=== PATIENT | male | born 1960 | race Caucasian/White ===

== ENCOUNTER → 2018-08-08 | Outpatient (CLI) | payer OTHER ==
[~2018-08-08] MED LIST: ALLO300T PO; AMLO10TA8 PO; ASPI81TA50 PO; GABA300C18 PO; HYDR-2145 PO; IOHEXOL 180 MG/ML 10 ML VIAL. ONE; LISI-130 PO; METO50TA6 PO; MULT-697 PO; POTA20TA82 PO; PRAV20TA2 PO; TIZA4TAB PO; methylPREDNISolone ACETATE 40 MG/ML VIAL. ONE; methylPREDNISolone ACETATE 80 MG/ML VIAL. ONE
--- NOTE | 2018-08-08 19:35 | PAIN ---
DATE OF SERVICE: 08/08/2018 DIAGNOSIS: Lumbar radiculopathy with lumbar degenerative disk disease. HISTORY OF PRESENT ILLNESS: The patient is a 58-year-old male who returns for a followup status post lumbar epidural steroid injection x 1. The patient reports about 75% improvement until he cut some grass about a week ago. The patient reports he was doing his neighbor's lawn and his lawn with a push mower, and although , it was still significantly difficult with his back with bending in a certain position. The patient reports some pain in the back, later on the left but transferred over to the right with standing, walking, sitting. It has not been awakening him from sleep at night. It is much better with lying down. The patient reports it is a 9 on a scale of 10 on average, 9 at its worst and a 4 at its least. The patient reports it is a 4 today. The patient reports no new motor or sensory deficits, no new bowel or bladder incontinence. Initially, he was increasing his activities, distance walking, doing working activities, household activities, traveling with greater ease and comfort, now the pain is returning as noted. PHYSICAL EXAMINATION: VITAL SIGNS: The patient's blood pressure 118/63, pulse 67, respirations 18, temperature 98.0 degrees Fahrenheit, height is 6 feet 5 inches, weight is 303 pounds. GENERAL: The patient is awake, alert, oriented, appropriate, very pleasant demeanor. HEENT: Shows normocephalic, atraumatic. Extraocular movements are intact and symmetrical. Oral cavity shows mucous membranes moist and pink. Dentition is intact. NECK: Shows anterior throat supple without palpable lymphadenopathy noted. Swallow reflex is symmetrical. CHEST: Shows normal with inspection. Breath sounds are clear to auscultation bilaterally. HEART: Shows S1, S2 clear. No murmurs auscultated. ABDOMEN: Soft, obese, nontender, nondistended. MUSCULOSKELETAL: Back shows spine grossly in the midline, normal appearing thoracic kyphosis and some minor flattening of the lumbar lordotic curvature. Lumbar paraspinous muscle shows symmetrical on inspection; with palpation shows some moderate tenderness diffusely, greater on the left than the right but in the low lumbar distribution only without atrophy, hypertrophy without trigger points, no radiation. The patient has good rotational motion of the lumbar spine, both laterally greater than 10 degrees right and left as well as extension greater than 10 degrees, forward flexion 45 degrees without difficulty. Lower extremities show deep tendon reflexes at 1+ in the patellar and tendo-calcaneus tendons are equal. Motor exam is strong with 5/5 dorsiflexion, extension and symmetrical. Peripheral pulses are 1+ posterior tibia. No peripheral edema is noted. PLAN: Options were discussed with the patient. The patient's old chart was reviewed as his current medication regimen and updated. Current review of systems updated today as well. We will proceed with a second in the series of lumbar epidural steroid injection today with fluoroscopic guidance. Risks were again discussed including but not limited to bleeding, infection, possibility of epidural hematoma, subsequent neurologic compromise, dural puncture, headaches, spinal cord and/or nerve damage, side effects of steroid medication and poor results regarding pain control. The patient understands and wished to proceed. The patient will return to the clinic in approximately 2 weeks for a followup, was counseled on return appointment, activity level and side effects to be aware of. DIAGNOSIS: Lumbar radiculopathy with lumbar degenerative disk disease. PROCEDURE: Lumbar epidural steroid injection, translaminar approach L4-L5 level using C-arm fluoroscopic guidance under sterile prep and drape using local anesthetic. MEDICATION INJECTED: A total of 120 mg Depo-Medrol plus 10 mL of preservative-free normal saline and 2 mL of Isovue for contrast. CONDITION AT DISCHARGE: Stable. The patient tolerated procedure well, had no complications. CITLALLI OLSEN MD DR: WADE/lauren JOB#: [id number] / [id number]
== END ==
LOC: PNCL 13:07
PROVIDERS: ATTEND Anesthesiology
DX: M51.16 Intervertebral disc disorders with radiculopathy, lumbar region (principal); Z79.82 Long term (current) use of aspirin
CPT/HCPCS: 62323; J1030; J1040; Q9965

== ENCOUNTER → 2018-08-23 | Outpatient (CLI) | payer OTHER ==
--- NOTE | 2018-08-23 23:08 | PAIN ---
DATE OF SERVICE: 08/23/2018 PROGRESS NOTE FOR PAIN CLINIC DIAGNOSIS: Lumbar radiculopathy with lumbar degenerative disk disease. HISTORY OF PRESENT ILLNESS: The patient is a 58-year-old male who returns for followup status post lumbar epidural steroid injection x 2. The patient reports about 100% improvement until about 3 days ago where he was in an awkward position working on a float in a toilet tank and he was in this position for several hours, getting things fixed and after that the pain began to return in his low back, in the bilateral lower extremities. The patient reports it is mostly in the back though without significant all the time radiation into his lower extremities, but is becoming more constant in the last 3-4 days. The patient reported tight and aching and also shooting pain in the lateral thighs and anterior thighs on occasion. The patient reports it is better with sitting or lying down, does not awaken him from sleep at night. It is rated at 7 on a scale of 10 at its worst in the past, 3 on average, 3 at its least and is 3 today. The patient reports no new motor or sensory deficits, no new bowel or bladder incontinence or other complaints. PHYSICAL EXAMINATION: VITAL SIGNS: The patient's blood pressure is 126/95, pulse 78, respirations 18, temperature 97.4 degrees Fahrenheit, height is 6 feet 5 inches, weighs 297 pounds. GENERAL: The patient is awake, alert, oriented, appropriate, very pleasant demeanor. HEENT: Head is normocephalic, atraumatic. Extraocular movements are intact and symmetrical. Oral cavity: Mucous membranes moist and pink. Dentition intact. NECK: Shows anterior throat supple without palpable lymphadenopathy noted. Swallow reflex symmetrical. CHEST: Shows normal on inspection. Breath sounds clear to auscultation bilaterally. HEART: Shows S1, S2 clear. No murmurs auscultated. ABDOMEN: Soft, nontender, nondistended. No palpable organomegaly is noted. No rebound or guarding demonstrated. BACK: Shows spine grossly in the midline. Normal-appearing thoracic kyphosis and some slight flattening of lumbar lordotic curvature. Lumbar paraspinous muscle shows symmetrical on inspection; on palpation shows some moderate tenderness diffusely, but only diffusely without radiation. The patient has good rotational motion of lumbar spine, both laterally as well as extension and flexion without significant difficulty. EXTREMITIES: The patient's lower extremities show deep tendon reflexes 1+ in the patellar and tendo calcaneus tendons are equal. Motor exam is strong with 5/5 dorsiflexion, extension, quadriceps and hamstring flexion and symmetrical. Peripheral pulses are 1+ posterior tibial. No peripheral edema is noted bilaterally. Options were discussed with the patient. The patient's old chart was reviewed as was his current medication regimen updated. Current review of systems updated today as well. We will proceed with a third in the series of lumbar epidural steroid injection today with fluoroscopic guidance. Risks were again discussed including, but not limited to bleeding, infection, possibility of epidural hematoma, subsequent neurologic compromise, dural puncture, headaches, spinal cord and/or nerve damage, side effects of steroid medication and poor results regarding pain control. The patient understands and wished to proceed. The patient will return to clinic in approximately 2 weeks for followup, was counseled on return appointment, activity level and side effects to be aware of. DIAGNOSIS: Lumbar radiculopathy with lumbar degenerative disk disease. PROCEDURE: Lumbar epidural steroid injection, translaminar approach L4-L5 level using C-arm fluoroscopic guidance under sterile prep and drape using local anesthetic. MEDICATION INJECTED: A total of 120 mg Depo-Medrol plus 10 mL of preservative-free normal saline and 2 mL of contrast. CONDITION AT DISCHARGE: Stable. The patient tolerated the procedure well, had no complications. CITLALLI OLSEN MD DR: WADE/lauren JOB#: [id number] / [id number]
== END ==
LOC: PNCL 13:53
PROVIDERS: ATTEND Anesthesiology
DX: M51.16 Intervertebral disc disorders with radiculopathy, lumbar region (principal); M54.5 Low back pain
CPT/HCPCS: 62323; J1030; J1040; Q9965

== ENCOUNTER → 2018-11-01 | Outpatient (CLI) | payer OTHER ==
[~2018-11-01] MED LIST changes: +BUPIVACAINE MPF 0.25% 10 ML VIAL. ONE; +PRAV40TA2 PO; -TIZA4TAB PO; +TIZA4TAB2 PO
--- NOTE | 2018-11-02 00:10 | PAIN ---
DATE OF SERVICE: 11/01/2018 PROGRESS NOTE FOR PAIN CLINIC DIAGNOSES: 1. Lumbar radiculopathy with lumbar degenerative disk disease. 2. Bilateral knee joint pain with primary osteoarthritis. HISTORY OF PRESENT ILLNESS: The patient is a 58-year-old male who returns for followup status post lumbar epidural steroid injections x 3, most recently seen on 09/22/2018. The patient did very well with about 75% improvement, although it has been limited. The pain is returning in the low back, but is not a chief complaint. Chief complaint is bilateral knee pain, but he is walking mostly with standing, walking, changing positions, especially climbing stairs, putting all his weight on one leg or the other, sensory right equal to left with pain in the knees themselves. The patient reports it does not awaken him from sleep at night, better with sitting or lying down, but his back is aching with prolong sitting also. The patient reports his knees were injected years ago, which were helpful, but did not last very long as well. The patient reports no new motor or sensory deficits. The patient did have x-rays of his knees on MRI actually showing some mild to moderate osteoarthritis of the knee joints bilaterally. The patient rates his pain is a 9 on a scale of 10 at its worst over the past week, 9 on average, 6 at its least and is a 6 today. The patient reports no new motor or sensory deficits, no new bowel or bladder incontinence or other complaints. He describes the pain as constant, sometimes unbearable with walking, standing on stairs. PHYSICAL EXAMINATION: VITAL SIGNS: The patient's blood pressure is 107/61, pulse 74, respirations 16, temperature 97.7 degrees Fahrenheit, height is 6 feet 5 inches and weight is 312 pounds. GENERAL: The patient is awake, alert, oriented, appropriate, very pleasant demeanor. HEENT: Shows normocephalic, atraumatic. Extraocular movements are intact and symmetrical. Oral cavity: Mucous membranes moist and pink. Dentition is intact. NECK: Shows anterior throat supple without palpable lymphadenopathy noted. Swallow reflex symmetrical. CHEST: Shows normal on inspection. Breath sounds are clear to auscultation bilaterally. HEART: Shows S1 and S2 clear, no murmurs auscultated. ABDOMEN: Soft, nontender, nondistended. No palpable organomegaly is noted. No rebound or guarding demonstrated. BACK: Shows spine grossly in the midline. Normal appearing thoracic kyphosis and lumbar lordotic curvature is slightly flattened. Lumbar paraspinous muscle shows some moderate tenderness with palpation diffusely throughout the upper, middle and lower distribution of paraspinous muscles. No full rotational motion of lumbar spine. EXTREMITIES: The patient's lower extremities show deep tendon reflexes at 1+ in the patellar and tendo calcaneus tendons. Motor exam is strong with 5/5 dorsiflexion, extension, quadriceps and hamstring flexion. The patient's knee shows no obvious abnormalities or swelling. Some mild tenderness with deep palpation in the medial aspect of the patella bilaterally as well as the medial collateral ligament, but only with very firm pressure. The patient shows good rotational motion, good hinge motion without crepitus or ratcheting of the bilateral knees. Popliteal pulses are 2+ and easily palpable. No peripheral edema is noted. Options were discussed with the patient. The patient's old chart was reviewed as his current medication regimen updated. Current review of systems updated today as well. We will proceed with bilateral intra-articular knee joint injection today with fluoroscopic guidance. Risks were again discussed including, but not limited to bleeding, infection, possibility of intravascular injection sequelae, spread of local anesthetic and numbness, side effects of steroid medication, exposure to fluoroscopy as well as poor results regarding pain control. The patient understands and wished to proceed. The patient will return to clinic in approximately 2 weeks for followup. He was counseled as to return appointment, activity level and side effects to be aware of. DIAGNOSIS: Bilateral knee joint pain with primary osteoarthritis, bilateral knee joints. PROCEDURE: Bilateral intraarticular knee joint injection using C-arm fluoroscopic guidance under sterile prep and drape using local anesthetic. MEDICATION INJECTED: A total of 2 mL of 0.25% bupivacaine per knee as well as 60 mg Depo-Medrol per knee and 1.5 mL of contrast per knee. CONDITION AT DISCHARGE: Stable. The patient tolerated the procedure well, had no complications. CITLALLI OLSEN MD DR: WADE/lauren JOB#: [id number] / [id number]
== END | disposition home or self-care (01) ==
LOC: PNCL 13:59
PROVIDERS: ATTEND Anesthesiology
DX: M17.0 Bilateral primary osteoarthritis of knee (principal); M51.16 Intervertebral disc disorders with radiculopathy, lumbar region
CPT/HCPCS: 20610; 77002; J1030; J1040; J3490; Q9965; 20605

== ENCOUNTER → 2018-11-29 | Outpatient (CLI) | payer OTHER ==
--- NOTE | 2018-11-29 13:54 | PAIN ---
DATE OF SERVICE: 11/29/2018 PROGRESS NOTE FOR PAIN CLINIC DIAGNOSES: 1. Lumbar radiculopathy with lumbar degenerative disk disease. 2. Bilateral knee joint pain with primary osteoarthritis. HISTORY OF PRESENT ILLNESS: The patient is a 58-year-old male who returns for followup status post both lumbar epidural steroid injections and bilateral knee joint injection. The patient did very well with near 100% improvement for the first 5-6 days after the last injections. The pain is still decreased, but after that time, the pain began to return in his bilateral knees, worse with walking, standing and weightbearing. The patient reports now with stepping on stairs, especially on curbs, putting all his weight on one leg. The pain is much more severe, somewhat worse on the left than the right, but present bilaterally. The patient did very much better after the last injection, was walking with much greater ease and comfort, doing household activities as well as traveling with greater ease as well. The patient reports no new motor or sensory deficits. Reports the pain does not awaken him from sleep at night, still has some pain in the low back, which the primary complaint is the knee pain bilaterally. The patient reports it is constant, unbearable at times with walking. The patient rates as a 9 on a scale of 10 at its worst in the past week, 9 on average, 7 at its least and is a 9 today. PHYSICAL EXAMINATION: VITAL SIGNS: The patient's blood pressure is 105/62, pulse 68, respirations 18, temperature 98.4 degrees Fahrenheit, height is 6 feet 5 inches, weight is 316 pounds. GENERAL: The patient is awake, alert, oriented, appropriate, very pleasant demeanor. HEENT: Shows normocephalic, atraumatic. Extraocular movements are intact and symmetrical. Oral cavity; mucous membranes moist and pink. Dentition is intact. NECK: Shows anterior throat supple without palpable lymphadenopathy noted. Swallow reflex symmetrical. CHEST: Shows normal on inspection. Breath sounds clear to auscultation bilaterally. HEART: Shows S1, S2 clear. No murmurs auscultated. ABDOMEN: Soft, nontender, nondistended. No palpable organomegaly is noted. No rebound or guarding demonstrated. BACK: Shows spine grossly in the midline. Normal appearing thoracic kyphosis and minor flattening of lumbar lordotic curvature. Lumbar paraspinous muscle shows symmetrical on inspection, on palpation shows moderate tenderness diffusely, but only diffusely without radiation. EXTREMITIES: The patient's lower extremities show deep tendon reflexes at 2+ in patella, 1+ tendo-calcaneus tendons. Motor exam is strong with 5/5 dorsiflexion, extension, quadriceps and hamstring flexion and symmetrical. The patient's peripheral pulses are 1+ posterior tibia. No peripheral edema is noted bilaterally. The patient's knee shows good passive motion without specific ratcheting or crepitus. Options were discussed with the patient. The patient's old chart was reviewed as his current medication regimen updated. Current review of systems updated today as well and we will proceed with bilateral intra-articular knee joint injections today with fluoroscopic guidance. Risks were again discussed including, but not limited to bleeding, infection, possibility of intravascular injection sequelae, spread of local anesthetic and numbness, side effects of steroid medication and poor results regarding pain control. The patient understands and wished to proceed. The patient will return to clinic in approximately 2 weeks for followup. He was counseled on return appointment, activity level and side effects to be aware of. DIAGNOSIS: Primary osteoarthritis, bilateral knee joints. PROCEDURE: Bilateral knee joint injections using C-arm fluoroscopic guidance under sterile prep and drape using local anesthetic. MEDICATION INJECTED: Total of 120 mg Depo-Medrol, 60 mg per knee and total of 6 mL of 0.25% bupivacaine 3 mL per knee after negative aspiration and a total of 3 mL of contrast. CONDITION AT DISCHARGE: Stable. The patient tolerated the procedure well, had no complications. CITLALLI OLSEN MD DR: WADE/lauren JOB#: [id number] / [id number]
== END ==
LOC: PNCL 12:46
PROVIDERS: ATTEND Anesthesiology
DX: M17.0 Bilateral primary osteoarthritis of knee (principal); M51.16 Intervertebral disc disorders with radiculopathy, lumbar region
CPT/HCPCS: 20610; 77002; J1030; J1040; J3490; Q9965

== ENCOUNTER → 2019-01-17 | Outpatient (CLI) | payer OTHER ==
[~2019-01-17] MED LIST changes: -BUPIVACAINE MPF 0.25% 10 ML VIAL. ONE; +HYLAN G-F 20 48 MG/6 ML SYRINGE INT ART ONE; -methylPREDNISolone ACETATE 40 MG/ML VIAL. ONE; -methylPREDNISolone ACETATE 80 MG/ML VIAL. ONE
--- NOTE | 2019-01-17 15:31 | PAIN ---
DATE OF SERVICE: 01/17/2019 PROGRESS NOTE FOR PAIN CLINIC DIAGNOSES: 1. Lumbar radiculopathy with lumbar degenerative disk disease. 2. Bilateral knee joint pain with primary osteoarthritis. HISTORY OF PRESENT ILLNESS: The patient is a 58-year-old male, who returns for followup status post bilateral knee joint injections with good results. We had a preauthorization for a Synvisc injection. He would like to proceed with that today, complaining of still significant pain, bilateral knees, more on the right than the left, but present bilaterally, significantly improved by 80% improvement after the cortisone injections for about 5 days. Pain is returning now with walking, standing; better with sitting and lying down, does not awaken him from sleep generally. The patient reports the pain is a 10 on a scale of 10 at its worst in the past week, 10 on average, 7 at its least and is 10 today. The patient reports it is aching, dull, tight and stabbing in the knees bilaterally. The patient reports no new motor or sensory deficits, no new bowel or bladder incontinence, still significant pain in the low back and bilateral lower extremities as he had before. PHYSICAL EXAMINATION: VITAL SIGNS: The patient's blood pressure 150/88, pulse 65, respirations 18, temperature 97.5 degrees Fahrenheit, height is 6 feet 5 inches, and weight is 320 pounds. GENERAL: The patient is awake, alert, oriented, appropriate, very pleasant demeanor. HEENT: Shows normocephalic, atraumatic. Extraocular movements are intact and symmetrical. Oral cavity: Mucous membranes moist and pink. Dentition is intact. NECK: Shows anterior throat supple without palpable lymphadenopathy noted. Swallow reflex symmetrical. CHEST: Shows normal on inspection. Breath sounds clear to auscultation bilaterally. HEART: Shows S1, S2 clear. No murmurs auscultated. ABDOMEN: Soft, nontender, nondistended. No palpable organomegaly is noted. No rebound or guarding demonstrated. BACK: Shows spine grossly in the midline. Lumbar paraspinous muscle shows symmetrical on inspection with some moderate tenderness throughout the upper, middle and lower distribution of paraspinous muscles bilaterally, but only diffusely. The patient does show good rotational motion of lumbar spine, both laterally as well as extension and flexion without difficulty. EXTREMITIES: Lower extremities show deep tendon reflexes 2+ in the patellar, 1+ tendo-calcaneus tendons. Motor exam is strong with 5/5 dorsiflexion, extension, quadriceps and hamstring flexion. The patient's knee shows moderate tenderness with palpation both medially and laterally over the patellar tendon, but without significant displacement, negative shelf sign bilaterally. No ratcheting or crepitus with joint mobility with full range of motion both passively bilaterally. Peripheral pulses are 1+ posterior tibia. No peripheral edema is noted. Options were discussed with the patient. The patient's old chart was reviewed as his current medication regimen updated. Current review of systems updated today as well. We will proceed with the Synvisc injections, bilateral intra-articular knee joints. Risks were discussed including but not limited to bleeding, infection, possibility of intravascular injection sequelae, spread of local anesthetic and numbness, potential extravasation of Synvisc and poor results regarding pain control. The patient understands and wished to proceed. The patient will return to clinic in approximately 2 weeks for followup. She was counseled on return appointment, activity level and side effects to be aware of. DIAGNOSES: Osteoarthritis, primary; bilateral knee joints. PROCEDURE: Bilateral knee joint Synvisc-One each knee, bilateral knee joint injections today under fluoroscopic guidance using sterile prep and drape. MEDICATION INJECTED: A total of 6 mL per knee Synvisc-One and 1 mL each knee of contrast. CONDITION AT DISCHARGE: Stable. The patient tolerated the procedure well, has no complications. CITLALLI OLSEN MD DR: WADE/lauren JOB#: [id number] / [id number]
== END ==
LOC: PNCL 12:42
PROVIDERS: ATTEND Anesthesiology
DX: M17.0 Bilateral primary osteoarthritis of knee (principal); M51.16 Intervertebral disc disorders with radiculopathy, lumbar region
CPT/HCPCS: 20610; 77002; Q9965

== ENCOUNTER → 2019-02-01 | Outpatient (CLI) | payer OTHER ==
[~2019-02-01] MED LIST changes: -HYLAN G-F 20 48 MG/6 ML SYRINGE INT ART ONE; +POTA20TA4 PO; -POTA20TA82 PO; +methylPREDNISolone ACETATE 40 MG/ML VIAL. ONE; +methylPREDNISolone ACETATE 80 MG/ML VIAL. ONE
--- NOTE | 2019-02-01 22:39 | PAIN ---
DATE OF SERVICE: 02/01/2019 PROGRESS NOTE FOR PAIN CLINIC DIAGNOSES: 1. Lumbar radiculopathy with lumbar degenerative disk disease. 2. Bilateral knee joint pain with bilateral osteoarthritis of the knee joints. HISTORY OF PRESENT ILLNESS: The patient is a 58-year-old male who returns for followup status post lumbar epidural steroid injection as well as bilateral knee joint injection with Synvisc-One. The patient reports the pain is better in the knees. After about 2 weeks, the pain has been returning with weightbearing. The patient reports his main complaint, however, is his low back with pain radiating to bilateral lateral thighs, anterior thighs, medial thighs and it goes across the low back into the posterior gluteus, worse with walking, standing, changing positions, better with sitting or lying down. The patient reports it generally does not awaken him from sleep at night. No new motor or sensory deficits. Initially, he was increasing his activity with greater ease and comfort. His last epidural injection was 07/2018 with about 100% improvement for several weeks after. The patient reports the pain is returning now, is aching and tight, stabbing in the low back into the lower extremities bilaterally, essentially right equal to left. PHYSICAL EXAMINATION: VITAL SIGNS: Today's blood pressure is 129/73, pulse is 76, respirations 18, temperature 98.2 degrees Fahrenheit, height 6 feet 5 inches, weight is 323 pounds. GENERAL: The patient is awake, alert, oriented, appropriate, very pleasant demeanor. HEENT: Shows normocephalic, atraumatic. Extraocular movements are intact and symmetrical. Oral cavity: Mucous membranes moist and pink. Dentition is intact. NECK: Supple without palpable lymphadenopathy noted. Swallow reflex is symmetrical. CHEST: Shows normal on inspection. Breath sounds clear bilaterally. HEART: Shows S1, S2 clear. No murmurs auscultated. ABDOMEN: Soft, nontender, nondistended. BACK: Shows spine grossly in the midline. Normal appearing thoracic kyphosis and minor flattening of lumbar lordotic curvature. Lumbar paraspinous muscle shows symmetrical on inspection. On palpation, he has some moderate tenderness diffusely, but only diffusely without significant radiation. The patient shows good rotational motion of lumbar spine, both laterally as well as extension and flexion without difficulty. EXTREMITIES: Lower extremities show deep tendon reflexes at 2+ in the patellar, 1+ tendo-calcaneus tendons. Motor exam is strong with 5/5 dorsiflexion, extension, quadriceps and hamstring flexion bilaterally. The patient's knee shows no significant tenderness with palpation except for the medial compartment of the patella bilaterally. The patient has good hinge motion without ratcheting without crepitus. Options were discussed with the patient. The patient's old chart was reviewed as his current medication regimen updated. Current review of systems updated today as well. We will proceed with lumbar epidural steroid injection today, the first in this series. Risks were again discussed including, but not limited to bleeding, infection, possibility of epidural hematoma, subsequent neurological compromise, dural puncture, headaches, spinal cord and/or nerve damage, side effects of steroid medication and poor results regarding pain control. The patient understands and wished to proceed. The patient will return to clinic in approximately 2 weeks for followup. He was counseled on return appointment, activity level and side effects to be aware of. DIAGNOSIS: Lumbar radiculopathy with lumbar degenerative disk disease. PROCEDURE: Lumbar epidural steroid injection, translaminar approach L4-L5 level using C-arm fluoroscopic guidance under sterile prep and drape using local anesthetic. MEDICATION INJECTED: A total of 120 mg Depo-Medrol plus 10 mL of preservative-free normal saline and 2 mL of contrast. CONDITION AT DISCHARGE: Stable. The patient tolerated the procedure well, had no complications. CITLALLI OLSEN MD DR: WADE/lauren JOB#: [id number] / [id number]
== END ==
LOC: PNCL 12:54
PROVIDERS: ATTEND Anesthesiology
DX: M51.16 Intervertebral disc disorders with radiculopathy, lumbar region (principal); M17.0 Bilateral primary osteoarthritis of knee
CPT/HCPCS: 62323; J1030; J1040; Q9965

== ENCOUNTER → 2019-04-10 | Outpatient (CLI) | payer OTHER ==
--- NOTE | 2019-04-11 00:07 | PAIN ---
DATE OF SERVICE: 04/10/2019 PROGRESS NOTE FOR PAIN CLINIC DIAGNOSES: 1. Lumbar radiculopathy with lumbar degenerative disk disease. 2. Bilateral knee joint pain with primary osteoarthritis. HISTORY OF PRESENT ILLNESS: The patient is a 58-year-old male who returns for followup status post lumbar epidural steroid injection as well as bilateral knee injections. The patient reports the pain in the knee is still fairly significant, only better for a few days following the injections that include Synvisc injection as well as bilateral steroid injections in the knees. The patient reports his main complaint today is his low back with pain radiating across the low back and into the posterior gluteus, lateral thighs and anterior thighs, worse with walking, standing, changing positions. The patient reports it is becoming more constant. It is tight and shooting in the low back and legs, essentially right equal to left and still some significant pain in the knees as well. The patient reports he is obtaining a new primary care physician and we encouraged him to request an orthopedic consultation through his primary care physician and through [place] [employer] insurance coverage to refer to an orthopedic surgeon. The patient understands and would like to do this as well. The patient rates his pain as a 10 on a scale of 10 at all times, average, worst and least and is a 10 today. The patient reports no new motor or sensory deficits, pain across the low back and into the lower extremities bilaterally. The patient reports it does not awaken him from sleep at night, better with sitting or lying down, much worse with standing, walking and changing positions. PHYSICAL EXAMINATION: VITAL SIGNS: The patient's blood pressure is 124/76, pulse 69, respirations 18, temperature 97.4 degrees Fahrenheit, height 6 feet 5 inches, weight is 327 pounds. GENERAL: The patient is awake, alert, oriented, appropriate, very pleasant demeanor. HEENT: Shows normocephalic, atraumatic. Extraocular movements are intact and symmetrical. Oral cavity: Mucous membranes moist and pink. Dentition is intact. NECK: Shows anterior throat supple without palpable lymphadenopathy noted. Swallow reflex symmetrical. CHEST: Shows normal on inspection. Breath sounds clear to auscultation bilaterally. HEART: Shows S1, S2 clear with no murmurs auscultated. ABDOMEN: Soft, nontender, nondistended. No palpable organomegaly is noted. No rebound or guarding demonstrated. BACK: Shows spine grossly in the midline. Normal appearing thoracic kyphosis and some slight flattening of lumbar lordotic curvature. Lumbar paraspinous muscle shows symmetrical on inspection, on palpation shows some moderate tenderness diffusely bilaterally going diffusely without significant radiation. The patient does show good rotational motion of the lumbar spine, both laterally as well as extension and flexion without difficulty. EXTREMITIES: Lower extremities show deep tendon reflexes 2+ in the patellar, 1+ tendo-calcaneus tendons. Motor exam is 5 on a scale of 5 with dorsiflexion, extension, quadriceps and hamstring flexion symmetrical. Peripheral pulses are 1+ posterior tibia. No peripheral edema is noted bilaterally. Options were discussed with the patient. The patient's old chart was reviewed as his current medication regimen updated. Current review of systems updated today as well. We will proceed with a lumbar epidural steroid injection today with fluoroscopic guidance. Risks were again discussed including, but not limited to bleeding, infection, possibility of epidural hematoma, subsequent neurological compromise, dural puncture, headaches, spinal cord and/or nerve damage, side effects of steroid medication and poor results regarding pain control. The patient understands and wished to proceed. The patient will return to clinic in approximately 2 weeks for followup, was counseled as to his return appointment, activity level and side effects to be aware of. DIAGNOSIS: Lumbar radiculopathy with lumbar degenerative disk disease. PROCEDURE: Lumbar epidural steroid injection, translaminar approach at L4-L5 level using C-arm fluoroscopic guidance under sterile prep and drape using local anesthetic. MEDICATION INJECTED: A total of 120 mg Depo-Medrol plus 10 mL of preservative-free normal saline and 2 mL of contrast. CONDITION AT DISCHARGE: Stable. The patient tolerated procedure well, had no complications. CITLALLI OLSEN MD DR: WADE/lauren JOB#: [id number] / [id number]
== END ==
LOC: PNCL 13:04
PROVIDERS: ATTEND Anesthesiology
DX: M51.16 Intervertebral disc disorders with radiculopathy, lumbar region (principal); M17.0 Bilateral primary osteoarthritis of knee
CPT/HCPCS: 62323; J1030; J1040; Q9965

== ENCOUNTER → 2019-09-17 | Outpatient (CLI) | payer OTHER ==
--- NOTE | 2019-09-17 14:26 | PAIN ---
DATE OF SERVICE: 09/17/2019 PROGRESS NOTE FOR PAIN CLINIC DIAGNOSES: 1. Lumbar radiculopathy with lumbar degenerative disk disease. 2. Bilateral knee joint pain with primary osteoarthritis, bilateral knee joints. HISTORY OF PRESENT ILLNESS: The patient is a 59-year-old male who returns for followup status post lumbar epidural steroid injection x 2, most recently seen 04/10/2019. The patient did very well, reports about a 100% improvement for the first week and then down to about a 75-80% improvement, and now about 50% overall. The patient reports pain is returning now in the low back, bilateral lower extremities, posterior gluteus, posterior lateral thighs, anterior thighs, medial thighs, some in the medial lower legs, mostly in the hips and thighs. The patient reports it is tight and shooting, on and off in intensity, worse with standing, walking, changing positions. The patient is wearing a back brace when he is working, he is on his feet most of his working days. He works at a local grocery store. The patient reports he does not wear it when he is at home. Generally sleeps fairly well at night, generally does not awaken her from sleep. Reports no new motor or sensory deficits, no new bowel or bladder incontinence or other complaints. PHYSICAL EXAMINATION: VITAL SIGNS: The patient's blood pressure is 144/81, pulse is 52, respirations 18, temperature is 97.8 degrees Fahrenheit, height is 6 feet 5 inches, weight is 306 pounds. GENERAL: The patient is awake, alert, oriented, appropriate, very pleasant demeanor. HEENT: Shows normocephalic, atraumatic. Extraocular movements are intact and symmetrical. Oral cavity shows mucous membranes moist and pink. Dentition is intact. NECK: Shows anterior throat supple without palpable lymphadenopathy noted. Swallow reflex symmetrical. CHEST: Shows normal on inspection. Breath sounds are clear bilaterally. HEART: Shows S1, S2 clear. No murmurs auscultated. ABDOMEN: Soft, obese, nontender, nondistended. BACK: Shows spine grossly in the midline. Slight increase in thoracic kyphosis, some minor flattening of lumbar lordotic curvature. Lumbar paraspinous muscle shows symmetrical on inspection, on palpation shows some moderate tenderness diffusely in the low lumbar distribution only bilaterally without radiation. The patient shows no tenderness over the spinous processes, sacrum or sacroiliac regions. The patient has good rotational motion of lumbar spine, both laterally as well as extension and flexion without significant difficulty. The patient's peripheral pulses are 1+ posterior tibia. No peripheral edema is noted. PLAN: Options were discussed with the patient. The patient's old chart was reviewed as his current medication regimen updated. Current review of systems updated today as well. We will proceed with a first in this series of lumbar epidural steroid injection today with fluoroscopic guidance. Risks were again discussed including, but not limited to bleeding, infection, possibility of epidural hematoma, subsequent neurological compromise, dural puncture, headaches, spinal cord and/or nerve damage, side effects of steroid medication and poor results regarding pain control. The patient understands and wished to proceed. The patient will return to clinic in approximately 2 weeks for followup. He was counseled on return appointment, activity level and side effects to be aware of. DIAGNOSIS: Lumbar radiculopathy with lumbar degenerative disk disease. PROCEDURE: Lumbar epidural steroid injection, translaminar approach L4-L5 level using C-arm fluoroscopic guidance under sterile prep and drape using local anesthetic. MEDICATION INJECTED: A total of 120 mg Depo-Medrol plus 5 mL preservative-free normal saline and 2 mL of contrast. CONDITION AT DISCHARGE: Stable. The patient tolerated the procedure well, had no complications. CITLALLI OLSEN MD DR: WADE/lauren JOB#: [id number] / [id number]
== END | disposition home or self-care (01) ==
LOC: PNCL 13:00
PROVIDERS: ATTEND Anesthesiology
DX: M51.16 Intervertebral disc disorders with radiculopathy, lumbar region (principal); M17.0 Bilateral primary osteoarthritis of knee; Z79.899 Other long term (current) drug therapy
CPT/HCPCS: 62323; J1030; J1040; Q9965